=== PATIENT | female | born 1950 | race African-American/Black ===

== ENCOUNTER → 2021-12-02 | Day surgery (SDC) | payer MEDICARE, MEDICAID ==
[~2021-12-02] VITALS: Ht 160 cm; Wt 88.5 kg
[~2021-12-02] MED LIST: BALANCED SALT IRRIG SOLN 15ML ONE; CIPROFLOXACIN 0.3% OPHTH SOLN 2.5ML ONE; CYCLOPENTOLATE HCL 1% OPHTH DROPS 2ML ONE; CYCLOPENTOLATE HCL 1% OPHTH DROPS 2ML RIGHTEYE NR; FENTANYL CITRATE/PF 50MCG/ML 2ML VIAL ONE; HYALURONATE SODIUM 10 MG/ML 0.55ML SYRINGE IO ONE; LACTATED RINGERS 1,000 ML IV SCH; LIDOCAINE HCL/PF 2% 20 MG/ML 10ML VIAL ONE; MERC50TA PO; MESA800T PO; MIDAZOLAM HCL 2 MG/2 ML VIAL ONE; NEO/POLYMYX B SULF/DEXAMETH OPHTH OINT 3.5GM ONE; PHENYLEPHRINE HCL 10% OPHTH DROPS 5ML ONE; PHENYLEPHRINE HCL 10% OPHTH DROPS 5ML RIGHTEYE NR; PREDNISOLONE ACETATE 1% OPHTH DROPS 5ML ONE; TETRACAINE 0.5% OPHTH DROPS 4ML ONE; TRIA1TAB92 MT; TROPICAMIDE 1% OPHTH DROPS 15ML ONE; TROPICAMIDE 1% OPHTH DROPS 15ML RIGHTEYE NR; TRYPAN BLUE 0.5 ML DISP.SYRIN IO ONE; [UNRECOGNIZED DRUG - OTHER]
== END | disposition home or self-care (01) ==
LOC: OR 08:10
PROVIDERS: ATTEND Ophthalmology
DX: H25.89 Other age-related cataract (principal); I10 Essential (primary) hypertension; Z79.899 Other long term (current) drug therapy; Z98.890 Other specified postprocedural states; Z88.2 Allergy status to sulfonamides; Z20.822 Contact with and (suspected) exposure to COVID-19
CPT/HCPCS: 66984; 87426; J2250; J3010; J3490; V2632; Q9957

== ENCOUNTER → 2022-01-06 | Day surgery (SDC) | payer MEDICARE, MEDICAID ==
[~2022-01-06] VITALS: Ht 157.5 cm; Wt 87.1 kg
[~2022-01-06] MED LIST changes: +ACETYLCHOLINE CHLORIDE INTRAOCULAR SOLUTION 1:100 ELECTROLYTE DILUENT IO ONE; +BALANCED SALT IRRIG SOLN COMB1 500ML OP SCH; +CYCLOPENTOLATE HCL 1% OPHTH DROPS 2ML LEFTEYE ONE; -CYCLOPENTOLATE HCL 1% OPHTH DROPS 2ML RIGHTEYE NR; +PHENYLEPHRINE HCL 10% OPHTH DROPS 5ML LEFTEYE ONE; -PHENYLEPHRINE HCL 10% OPHTH DROPS 5ML RIGHTEYE NR; +TROPICAMIDE 1% OPHTH DROPS 15ML LEFTEYE ONE; -TROPICAMIDE 1% OPHTH DROPS 15ML RIGHTEYE NR
== END | disposition home or self-care (01) ==
LOC: OR 08:08
PROVIDERS: ATTEND Ophthalmology
DX: H25.89 Other age-related cataract (principal); Z79.899 Other long term (current) drug therapy; Z98.890 Other specified postprocedural states; Z72.89 Other problems related to lifestyle; Z88.2 Allergy status to sulfonamides; Z20.822 Contact with and (suspected) exposure to COVID-19
CPT/HCPCS: 66984; 87426; C9803; J2250; J3010; J3490; J7120; V2632; Q9957

== ENCOUNTER → 2024-01-03 | Outpatient (CLI) | payer MEDICARE, MEDICAID ==
[~2024-01-03] MED LIST changes: -ACETYLCHOLINE CHLORIDE INTRAOCULAR SOLUTION 1:100 ELECTROLYTE DILUENT IO ONE; -BALANCED SALT IRRIG SOLN 15ML ONE; -BALANCED SALT IRRIG SOLN COMB1 500ML OP SCH; -CIPROFLOXACIN 0.3% OPHTH SOLN 2.5ML ONE; -CYCLOPENTOLATE HCL 1% OPHTH DROPS 2ML LEFTEYE ONE; -CYCLOPENTOLATE HCL 1% OPHTH DROPS 2ML ONE; -FENTANYL CITRATE/PF 50MCG/ML 2ML VIAL ONE; -HYALURONATE SODIUM 10 MG/ML 0.55ML SYRINGE IO ONE; -LACTATED RINGERS 1,000 ML IV SCH; -LIDOCAINE HCL/PF 2% 20 MG/ML 10ML VIAL ONE; -MIDAZOLAM HCL 2 MG/2 ML VIAL ONE; -NEO/POLYMYX B SULF/DEXAMETH OPHTH OINT 3.5GM ONE; -PHENYLEPHRINE HCL 10% OPHTH DROPS 5ML LEFTEYE ONE; -PHENYLEPHRINE HCL 10% OPHTH DROPS 5ML ONE; -PREDNISOLONE ACETATE 1% OPHTH DROPS 5ML ONE; -TETRACAINE 0.5% OPHTH DROPS 4ML ONE; -TROPICAMIDE 1% OPHTH DROPS 15ML LEFTEYE ONE; -TROPICAMIDE 1% OPHTH DROPS 15ML ONE; -TRYPAN BLUE 0.5 ML DISP.SYRIN IO ONE
== END | disposition home or self-care (01) ==
LOC: MRI 12:43
DX: S83.412A Sprain of medial collateral ligament of left knee, initial encounter (principal); M94.262 Chondromalacia, left knee; M94.261 Chondromalacia, right knee; M17.0 Bilateral primary osteoarthritis of knee; M25.762 Osteophyte, left knee; M25.462 Effusion, left knee; M71.22 Synovial cyst of popliteal space [Baker], left knee; X58.XXXA Exposure to other specified factors, initial encounter; Y93.89 Activity, other specified; Y92.89 Other specified places as the place of occurrence of the external cause; Y99.8 Other external cause status
CPT/HCPCS: 73721

== ENCOUNTER → 2024-02-07 | Outpatient (CLI) | payer MEDICARE, MEDICAID | END | disposition home or self-care (01) | LOC: MRI 12:40 | DX: M47.817 Spondylosis without myelopathy or radiculopathy, lumbosacral region (principal); M48.07 Spinal stenosis, lumbosacral region; M51.36 Other intervertebral disc degeneration, lumbar region | CPT/HCPCS: 72148 ==

== ENCOUNTER → 2024-03-14 | Outpatient (CLI) | payer MEDICARE, MEDICAID | END | disposition home or self-care (01) | LOC: MRI 12:30 | PROVIDERS: ATTEND Neurological Surgery | DX: M47.814 Spondylosis without myelopathy or radiculopathy, thoracic region (principal); M47.812 Spondylosis without myelopathy or radiculopathy, cervical region; M48.02 Spinal stenosis, cervical region | CPT/HCPCS: 72141; 72146 ==